=== PATIENT | male | born 1980 | race Caucasian/White ===

== ENCOUNTER 2018-05-06 11:20 | Emergency (ER) | payer OTHER ==
[~2018-05-06] VITALS: Ht 175.3 cm; Wt 77.2 kg
[~2018-05-06 11:20] MED LIST: NOHOMEMEDS; TRILAFON8 M1 PO
[2018-05-06 11:45] LABS: BASOPHIL (%) 0.3 % (0-1); EOSINOPHIL (%) 0 % (0-5); HEMATOCRIT 48.2 % (38.0-50.0); HEMOGLOBIN 17.2 G/DL (12.5-16.6); IMMATURE GRANULOCYTE (%) 0.4 % (0.0-0.7); LYMPHOCYTE (%) 12.8 % (15-42); LYMPHOCYTE COUNT 0.9 K/uL (1.0-2.8); MCH 32.7 PG (29.0-34.0); MCHC 35.7 G/DL (30.0-36.0); MCV 91.6 FL (86-99); MONOCYTE COUNT 0.7 K/uL (0-0.8); NEUTROPHIL (%) 76.5 % (45-76); NEUTROPHIL COUNT 5.2 K/uL (1.8-6.4); PLATELET COUNT 169 K/uL (156-360); RBC DIS.WIDTH-CV 12.3 % (11.8-14.6); RBC DIS.WIDTH-SD 41.9 % (39-53); RED BLOOD COUNT 5.26 M/uL (4.00-5.50); WHITE BLOOD COUNT 6.8 K/uL (4.1-10.2)
[2018-05-06 11:52] LABS: CHLORIDE 101 mEq/L (99-109); POTASSIUM 4.2 mEq/L (3.7-5.4); SODIUM 136 mEq/L (136-147)
[2018-05-06 11:54] LABS: APPEARANCE SL.HAZY ((CLEAR)); BILIRUBIN NEGATIVE; BLOOD NEGATIVE; COLOR AMBER ((YELLOW)); GLUCOSE (STRIP) NEGATIVE; KETONES 5; LEUKOCYTES NEGATIVE; NITRITE NEGATIVE; PROTEIN (STRIP) 100; SPECIFIC GRAVITY 1.033 (1.000-1.030)
[2018-05-06 11:54] LABS: GLUCOSE 110 mg/dL (70-99)
[2018-05-06 11:57] LABS: CREATININE 1.2 mg/dL (0.6-1.3); GFR ESTIMATE (CALCULATED) > 59 mL/min/ (58.99-99999)
[2018-05-06 11:58] LABS: BACTERIA RARE /HPF; EPITHELIAL CELLS RARE /HPF; MUCUS 4+ /LPF; RED BLOOD CELLS 0-5 /HPF (0-5); UCUL ADDED? NO; WHITE BLOOD CELLS 0-5 /HPF (0-5)
[2018-05-06 11:58] LABS: UREA NITROGEN (BUN) 12 mg/dL (9-23)
[2018-05-06] MEDS ORDERED: LEVAQUIN750 MG PO (13:42)
[2018-05-06 14:03] VITALS: BP 118/81
== END 2018-05-06 14:16 | disposition home or self-care (01) ==
LOC: EME 11:20
PROVIDERS: Emergency Medicine
DX: J06.9 Acute upper respiratory infection, unspecified (principal); R10.32 Left lower quadrant pain; F41.9 Anxiety disorder, unspecified; R56.9 Unspecified convulsions; F20.9 Schizophrenia, unspecified; F17.200 Nicotine dependence, unspecified, uncomplicated; Z87.19 Personal history of other diseases of the digestive system; Z91.09 Other allergy status, other than to drugs and biological substances
CPT/HCPCS: 71045; 74177; 80048; 81003; 85025; 99281; 99285; J7030